=== PATIENT | male | born 1965 ===

== ENCOUNTER 2018-05-06 16:55 | Emergency (ER) | payer OTHER ==
[2018-05-06 17:07] VITALS: RESP 18; O2SAT 97
[2018-05-06] MEDS ORDERED: Iohexol 240 (50 ml) PO ONE (18:16)
[2018-05-06] MEDS ORDERED: Sodium Chloride 0.9% 1,000 ML IV STA (18:17)
--- NOTE | 2018-05-06 18:23 | ED PDOC ---
HPI: Abdomen Time Seen by Provider: 05/06/18 17:00 Chief Complaint (Nursing): Abdominal Pain Chief Complaint (Provider): Abdominal pain History Per: Patient, [employer] Assistant (6) History/Exam Limitations: no limitations Onset/Duration Of Symptoms: Days Current Symptoms Are (Timing): Still Present Context: Food Location Of Pain/Discomfort: RLQ, LLQ Quality Of Discomfort: "Pain" Associated Symptoms: denies: Fever, Chills, Nausea, Vomiting, Diarrhea, Loss Of Appetite, Back Pain, Chest Pain, Constipation, Urinary Symptoms Additional History Per: Patient Additional Complaint(s): 52yo male, otherwise healthy, comes to ER for evaluation of lower abdominal pain x 6 days. Patient states 6 days ago, he was out and had a lot of meat and drank a couple beers; he states he had sharp abdominal pain after which relieved 1 day later. Patient states the pain started again 4 days ago and has been persistent, prompting the ER visit. He denies any fever, chills, nausea, vomiting, diarrhea, chest pain or shortness of breath. He denies any urinary symptoms as well. At present, patient reports a mild associated headache and generalized discomfort as well. He denies any additional medical complaints. PMD: Dr. Terrazas Past Medical History Reviewed: Historical Data, Nursing Documentation, Vital Signs Vital Signs: Last Vital Signs Temp 99.2 F 05/07/18 01:33 Pulse 93 H 05/07/18 01:33 Resp 18 05/07/18 01:33 BP 133/84 05/07/18 01:33 Pulse Ox 97 05/07/18 04:38 - Medical History PMH: No Chronic Diseases - Surgical History Surgical History: No Surg Hx - Family History Family History: States: No Known Family Hx - Social History Current smoker - smoking cessation education provided: No Alcohol: Social Drugs: Denies - Home Medications Home Medications: Ambulatory Orders Medication Instructions Recorded Ciprofloxacin [Cipro] 500 mg PO BID 7 Days tab 05/07/18 Ibuprofen [Motrin Tab] 600 mg PO Q6 #30 tab 05/07/18 metroNIDAZOLE [Flagyl] 500 mg PO BID 7 Days tab 05/07/18 - Allergies Allergies/Adverse Reactions: Allergies Allergy/AdvReac Type Severity Reaction Status Date / Time No Known Allergies Allergy Verified 05/06/18 17:01 Review of Systems ROS Statement: Except As Marked, All Systems Reviewed And Found Negative Constitutional: Positive for: Malaise. Negative for: Fever, Chills Cardiovascular: Negative for: Chest Pain Respiratory: Negative for: Shortness of Breath Gastrointestinal: Positive for: Abdominal Pain. Negative for: Nausea, Vomiting , Diarrhea, Constipation Genitourinary Male: Negative for: Dysuria, Frequency, Hematuria Neurological: Positive for: Headache Physical Exam - Reviewed Nursing Documentation Reviewed: Yes Vital Signs Reviewed: Yes - Physical Exam Appears: Positive for: Well, Non-toxic, No Acute Distress Head Exam: Positive for: ATRAUMATIC, NORMAL INSPECTION, NORMOCEPHALIC Skin: Positive for: Normal Color, Warm, DRY Eye Exam: Positive for: EOMI, Normal appearance, PERRL Neck: Positive for: Normal, Painless ROM Cardiovascular/Chest: Positive for: Regular Rate, Rhythm Respiratory: Positive for: CNT, Normal Breath Sounds Gastrointestinal/Abdominal: Positive for: Soft, Tenderness (lower abdominal tenderness diffusely). Negative for: Mass, Guarding, Rebound Back: Positive for: Normal Inspection. Negative for: L CVA Tenderness, R CVA Tenderness Extremity: Positive for: Normal ROM. Negative for: Pedal Edema, Deformity Neurologic/Psych: Positive for: Alert, Oriented. Negative for: Motor/Sensory Deficits - Laboratory Results Result Diagrams: 05/06/18 18:30 05/06/18 18:30 - ECG O2 Sat by Pulse Oximetry: 97 (RA) Pulse Ox Interpretation: Normal Medical Decision Making Medical Decision Making: Impression: Lower abdominal pain Plan: * Labs * Urinalysis * CT Abdomen/Pelvis 19:11 Patient signed out to Dr. Rivas pending CT, reeval. Scribe Attestation: Documented by Mary Soliman, acting as a scribe for Arabella Knight MD. Provider Scribe Attestation: All medical record entries made by the Scribe were at my direction and personally dictated by me. I have reviewed the chart and agree that the record accurately reflects my personal performance of the history, physical exam, medical decision making, and the department course for this patient. I have also personally directed, reviewed, and agree with the discharge instructions and disposition. Disposition - Clinical Impression Clinical Impression: Diverticulitis - Patient ED Disposition Is Patient to be Admitted: Transfer of Care - Disposition Referrals: Mikey Terrazas MD [Family Provider] - Disposition: Transfer of Care Disposition Time: 19:00 Condition: STABLE Prescriptions: Ciprofloxacin [Cipro] 500 mg PO BID 7 Days tab Ibuprofen [Motrin Tab] 600 mg PO Q6 #30 tab metroNIDAZOLE [Flagyl] 500 mg PO BID 7 Days tab Instructions: High Fiber Diet, Diverticulitis Forms: [employer] (Citizen [place]), [facility] ED School/Work Excuse Print Language: NIGERIAN Patient Signed Over To: Dre Rivas
[2018-05-06] MEDS ORDERED: Iohexol 240 (50 ml) ONE (18:34)
[2018-05-06 18:40] LABS: BASO # 0.1 K/uL (0.0-0.2); BASO % 0.6 % (0.0-2.0); EOS # 0.2 K/uL (0.0-0.7); EOS % 1.1 % (0.0-4.0); HEMOGLOBIN 14.6 g/dL (12.0-18.0); LYMPH # 1.8 K/uL (1.0-4.3); LYMPH % 11.3 % (20.0-40.0); MEAN CELL VOLUME 89.7 fl (80.0-94.0); MEAN CORPUSCULAR HEMOGLOBIN 30.5 pg (27.0-31.0); MEAN CORPUSCULAR HGB CONC 33.9 g/dL (33.0-37.0); MEAN PLATELET VOLUME 8.5 fl (7.2-11.7); MONO # 1.3 K/uL (0.0-0.8); MONO % 8.6 % (0.0-10.0); NEUT # 12.1 K/uL (1.8-7.0); NEUT % 78.4 % (50.0-75.0); NRBC % 0.1 % (0.0-0.0); RBC 4.81 Mil/uL (4.40-5.90); RED CELL DISTRIBUTION WIDTH 13.7 % (11.5-14.5); WHITE BLOOD COUNT 15.4 K/uL (4.8-10.8)
[2018-05-06 18:50] LABS: ALB/GLOB RATIO 1.3 (1.0-2.1); ALBUMIN 4.3 g/dL (3.5-5.0); ALT/SGPT 128 U/L (21-72); AST/SGOT 73 U/L (17-59); BLOOD UREA NITROGEN 13 mg/dl (9-20); GFR NON-AFRICAN AMERICAN > 60
[2018-05-06 19:32] LABS: URINE BILIRUBIN NEGATIVE (NEGATIVE); URINE BLOOD NEGATIVE (NEGATIVE); URINE CLARITY CLEAR (Clear); URINE COLOR YELLOW (YELLOW); URINE GLUCOSE (UA) NEG (Normal); URINE LEUKOCYTE ESTERASE NEG Leu/uL (Negative); URINE PROTEIN NEGATIVE (NEGATIVE); URINE UROBILINOGEN 0.2-1.0 mg/dL (0.2-1.0)
--- NOTE | 2018-05-06 19:52 | ED PDOC ---
- Laboratory Results Result Diagrams: 05/06/18 18:30 05/06/18 18:30 - ECG O2 Sat by Pulse Oximetry: 97 (RA) Pulse Ox Interpretation: Normal Medical Decision Making Medical Decision Makin:10 52yo male, comes to ER for evaluation of abdominal pain x 6 days. Patient signed out to me by Dr. Knight pending CT studies. 22:35 Abdomen/Pelvis CT FINDINGS: Lower thorax: No acute findings. ABDOMEN: Liver: There is a diffuse decrease in hepatic parenchymal density, consistent with fatty infiltration. Focal density in the LEFT hepatic lobe could be fatty sparing measuring 3.3 x 5.8 cm. 2.3 x 1.9 cm density in the RIGHT hepatic lobe, possible fatty sparing. Gallbladder and bile ducts: Normal. No calcified stones. No ductal dilation. Pancreas: Normal. No ductal dilation. Spleen: Normal. No splenomegaly. Adrenals: Normal. No mass. Kidneys and ureters: There is a simple cyst in the left kidney. The right kidney is normal. There is a left renal collecting system calcification. No hydronephrosis. Stomach and bowel: There is a segment of wall thickening at the junction of the sigmoid and descending colon, consistent in appearance with acute diverticulitis. No perforation or abscess. Appendix: No evidence of appendicitis. Normal appendix. PELVIS: Bladder: Unremarkable as visualized. Reproductive: Unremarkable as visualized. ABDOMEN and PELVIS: Intraperitoneal space: Normal. No free air. No significant fluid collection. Bones/joints: No acute fracture. No dislocation. Soft tissues: Unremarkable. Vasculature: Normal. No abdominal aortic aneurysm. Lymph nodes: Normal. No enlarged lymph nodes. IMPRESSION: Findings consistent with acute diverticulitis. 23:10 -Upon provider reevaluation patient is well appearing and reports feeling better. Results explained using in-demand airplane pilot. All questions were answered and will check lactic acid to make sure no elevation. If negative, patient will be safe for discharge. First round of antibiotics will be given in the ED. There is agreement to discharge plan. Return precautions and diet instructions were provided. Scribe Attestation: Documented by Mary Soliman, acting as a scribe for Dre Rivas MD Provider Scribe Attestation: All medical record entries made by the Scribe were at my direction and personally dictated by me. I have reviewed the chart and agree that the record accurately reflects my personal performance of the history, physical exam, medical decision making, and the department course for this patient. I have also personally directed, reviewed, and agree with the discharge instructions and disposition. Disposition - Clinical Impression Clinical Impression: Diverticulitis - POA Present On Arrival: None - Disposition Referrals: Mikey Terrazas MD [Family Provider] - Disposition: Routine/Home Disposition Time: 23:10 Condition: STABLE Prescriptions: Ciprofloxacin [Cipro] 500 mg PO BID 7 Days tab Ibuprofen [Motrin Tab] 600 mg PO Q6 #30 tab metroNIDAZOLE [Flagyl] 500 mg PO BID 7 Days tab Instructions: High Fiber Diet, Diverticulitis Forms: [facility] ([place]), [facility] ED School/Work Excuse Print Language: [place]
[2018-05-06] MEDS ORDERED: Sodium Chloride 0.9% 50 ML IV ONE (20:35)
[2018-05-06] MEDS ORDERED: Iohexol 300 100 ML IJ ONE (20:35)
[2018-05-06] MEDS ORDERED: Ciprofloxacin 400mg/200ml D5W 400 MG/200 ML BAG IVPB STA (22:53)
[2018-05-06] MEDS ORDERED: metroNIDAZOLE 500mg/100ml NS 100 ML IVPB STA (22:56)
[2018-05-06 23:28] LABS: VENOUS BLOOD GAS BASE EXCESS 3.5 mmol/L (0.0-2.0); VENOUS BLOOD GAS PCO2 40 mmHg (40-60); VENOUS BLOOD GAS PO2 60 mm/Hg (30-55); VENOUS BLOOD PH 7.45 (7.32-7.43)
[2018-05-07] MEDS ORDERED: Ciprofloxacin 400mg/200ml D5W 400 MG/200 ML BAG IVPB ONE (00:09)
[2018-05-07 01:33] VITALS: BP 133/84; PULSE 93; TEMP 99.2
--- NOTE | 2018-05-07 10:54 | CT ---
Date of service: 05/06/2018 PROCEDURE: CT Abdomen and Pelvis with contrast HISTORY: lower abd pain COMPARISON: Noncontrast abdomen and pelvis CT exam 04/29/2011. TECHNIQUE: Following oral and intravenous contrast administration, a CT examination of the abdomen and pelvis performed from the domes of the diaphragms to the symphysis pubis with reformatted datasets provided not only axial but also sagittal and coronal series. Coronal and sagittal reformats were generated. Contrast dose: Omnipaque 300, 95 cc Radiation dose: Total exam DLP = 617.54 mGy-cm. This CT exam was performed using one or more of the following dose reduction techniques: Automated exposure control, adjustment of the mA and/or kV according to patient size, and/or use of iterative reconstruction technique. FINDINGS: LOWER THORAX: Marked hepatic steatosis is reiterated with focal fatty sparing at the left and right hepatic lobes again evident. LIVER: Unremarkable. No gross lesion or ductal dilatation. GALLBLADDER AND BILE DUCTS: Unremarkable. PANCREAS: Unremarkable. No gross lesion or ductal dilatation. SPLEEN: Unremarkable. ADRENALS: Unremarkable. No mass. KIDNEYS AND URETERS: There is no obstructive uropathy bilaterally. A punctate intrarenal calculus identified at the upper pole right as well as lower pole left kidney. Simple cysts is slightly larger in size at the upper midpole left kidney measuring 2.4 cm greatest dimension compared 1.5 cm previously. VASCULATURE: Unremarkable. No aortic aneurysm. BOWEL: The stomach is collapsed limiting evaluation the stomach. There is nonspecific fecalization of the distal small bowel there is no bowel obstruction appreciated. No gross mural thickening of the colon is appreciate densely again to the sigmoid segment which is affected by diverticula. Local pericolic reaction affects the proximal to mid segment in a pattern that suggests acute subacute segmental colitis/diverticulitis. No abscess or free intra peritoneal gas collection. No ascites. APPENDIX: Normal appendix. PERITONEUM: As above. LYMPH NODES: Unremarkable. No enlarged lymph nodes. BLADDER: Unremarkable. REPRODUCTIVE: Enlarged prostate gland reiterated. BONES: No acute fracture. OTHER FINDINGS: None. IMPRESSION: 1. Acute subacute sigmoid diverticulitis including mural thickening. Clinical correlation is recommended with consideration of follow-up lower endoscopy following therapy. 2. Marked fatty liver infiltration reiterated without definitive hepatic mass. Areas of focal fatty sparing are identified at the right and left lobes liver as per above. 3. Minimal bilateral intrarenal nonobstructive urolithiasis without obstructive uropathy.
== END 2018-05-07 01:30 | disposition home or self-care (01) ==
LOC: H.ER 16:55
DX: K57.32 Diverticulitis of large intestine without perforation or abscess without bleeding (principal)
CPT/HCPCS: 74177; 80053; 81003; 82803; 85025; 87040; 87086; 96360; 99283; J0744; J1885; J7030; Q9966; Q9967